=== PATIENT | female | born 1960 | race Caucasian/White ===

== ENCOUNTER → 2018-05-03 | Outpatient (CLI) | payer OTHER ==
[~2018-05-03] MED LIST: LANSOPRAZOLE30 MG PO; LOSARTAN-HCTZ1 EAC2 PO; SIMVASTATIN80 MG PO
--- NOTE | 2018-05-03 10:52 | Diagnostic Imaging Report ---
PROCEDURE:ABDOMINAL ULTRASOUND COMPARISON:None. INDICATIONS:ABDOMINAL PAIN FINDINGS: Liver: Measures 14.2 cm. Increased hepatic parenchymal echogenicity. No focal mass. Main portal vein: Measures 0.9 cm. Hepatopetal flow. Gallbladder: No evidence of distension, wall thickening, or stone. Common Bile Duct: Measures 0.2 cm. No echogenic filling defect. Sonographic Platt's sign: Negative. Right kidney: Measures up to 9.8 cm. No solid or cystic mass, echogenic calculi, or hydronephrosis. Normal parenchymal echogenicity. Left kidney: Measures up to 10 cm. No solid or cystic mass, echogenic calculi, or hydronephrosis. Normal parenchymal echogenicity. Spleen: Measures up to 9.8 cm. Pancreas: The visualized portions of the pancreas are normal. Inferior vena cava: Normal. Aorta: Normal. Ascites: None. CONCLUSION: Hepatic steatosis. Dictated by: BUZZ CAMPOS M.D. on 05/03/2018 at 11:01 Electronically approved by: BUZZ CAMPOS M.D. on 05/03/2018 at 11:01
== END ==
LOC: US 09:15
PROVIDERS: ATTEND Family Medicine
DX: R10.9 Unspecified abdominal pain (principal)
CPT/HCPCS: 76700

== ENCOUNTER → 2018-05-15 | Outpatient (CLI) | payer OTHER ==
[~2018-05-15] MED LIST changes: +SINCALIDE 3 MCG/VIAL INJ ONE
--- NOTE | 2018-05-15 19:50 | Diagnostic Imaging Report ---
Hepatobiliary Scan with Gallbladder Ejection Fraction Clinical information: 57 F with abdominal pain Report: Following intravenous administration of 7 millicuries of Tc-99m mebrofenin, dynamic images of the abdomen in the anterior projection were obtained through 30 minutes. Sincalide (CCK analog) 1.8 micrograms was administered intravenously over 30 minutes with additional imaging for determination of gallbladder ejection fraction. Perfusion to the liver is normal. Extraction of tracer from the blood pool by the liver parenchyma is normal. Tracer is seen promptly within the biliary tract. The gallbladder begins to fill by 8 minutes post-injection of tracer and fills adequately. Tracer is seen in the small bowel by 18 minutes. The gallbladder ejection fraction with administration of sincalide is 94% (normal greater than 40%). Impression: 1. Filling of the gallbladder excludes the diagnosis of acute cystic duct obstruction/acute cholecystitis. 2. Normal gallbladder ejection fraction of 94% does not support the clinical diagnosis of chronic cholecystitis/gallbladder dyskinesia. Signed by: Dr. Maria Elena Deleon M.D. on 05/15/2018 7:47 PM
== END ==
LOC: NM 09:20
PROVIDERS: ATTEND Family Medicine
DX: R10.9 Unspecified abdominal pain (principal)
CPT/HCPCS: 78227; A9537; J2805

== ENCOUNTER → 2024-04-10 | Outpatient (REF) | payer BC ==
[~2024-04-10] MED LIST changes: -SINCALIDE 3 MCG/VIAL INJ ONE
== END ==
LOC: MAMMO 15:58
PROVIDERS: ATTEND Family Medicine
DX: Z12.31 Encounter for screening mammogram for malignant neoplasm of breast (principal)
CPT/HCPCS: 77067